=== PATIENT | male | born 1980 | race Caucasian/White ===

== ENCOUNTER 2017-05-08 14:58 | Observation (INO) | payer OTHER ==
--- NOTE | 2017-05-08 15:55 | XRAY ---
Indication: Right abdominal pain for 2 weeks. Multiple contiguous axial images obtained through the abdomen and pelvis prior to and following 80 cc Isovue 370 contrast only. Comparison: None Lung bases demonstrates minimal bibasilar dependent and subsegmental atelectasis. Tiny 3 mm noncalcified nodule in the peripheral right lower lobe possibly granulomatous. No infiltrate or effusion. Heart is not enlarged. Noncontrasted images through the abdomen demonstrates a few calcified splenic granulomas. No renal calculus or evidence for obstructive uropathy. Noncontrasted stomach and bowel loops appear nonobstructed. Mild scattered colonic diverticulosis. Appendix is abnormally prominent up to 2 cm with periappendiceal stranding and 5 mm appendicolith favoring acute appendicitis. Tiny free fluid but no walled off fluid collection or free air. Postcontrast images demonstrate normal visceral enhancement and renal excretion. Spleen is enlarged measuring 14.5 cm in greatest axial dimension. Remaining liver, gallbladder, pancreas, spleen, adrenal glands, kidneys, ureters, bladder, and aorta appear unremarkable. No pathologic retroperitoneal lymphadenopathy. Osseous structures intact. Tiny fatty umbilical hernia. Impression: 1. CT findings as detailed favoring acute appendicitis. No perforation or abscess. 2. Incidental scattered colonic diverticulosis, splenomegaly, and tiny fatty umbilical hernia. 3. Right lower lobe 3 mm noncalcified micronodule possibly granulomatous especially in this demographic. Comment: Immediate telephone report was given to the ordering clinician. CT DI 28.11
[2017-05-08] MEDS ORDERED: Zofran 4 MG/2 ML VIAL IV PRN (16:22)
[2017-05-08] MEDS ORDERED: Dextrose 5% -0.45 NaCl 1000 ML 1,000 ML IV SCH (16:30)
[2017-05-08] MEDS ORDERED: MEFOXIN 2 GM PREMIX** 2 GM/50 ML ML IV SCH (17:00)
[2017-05-08] MEDS ORDERED: Pepcid 20 MG VIAL IV SCH (17:00)
[2017-05-08] MEDS ORDERED: BICITRA 30 ML CUP PO SCH (17:00)
[2017-05-08] MEDS ORDERED: Lactated Ringers 1,000 ML IV SCH (17:00)
[2017-05-08 17:11] LABS: BASOPHIL % 0.3 % (0.0-0.4); Eosinophil % 0.5 % (0.00-5.0); Granulocytes % 65.7 % (36.0-66.0); Lymphocytes % 24.8 % (24.0-44.0); Mean Cell Volume 89.5 fl (78-100); Mean Corpuscular Hemoglobin 30.3 pg (26-32); Mean Platelet Volume 10.2 fl (6-9.5); Monocytes % 8.7 % (0.0-12.0); Platelet Count 245 K/mm3 (150-450); Red Blood Count 4.78 M/mm3 (4.1-5.6); Red Cell Distribution Width 13.6 % (11.5-14.0); White Blood Count 7.6 K/mm3 (4.0-10.5)
[2017-05-08 17:40] LABS: ALKALINE PHOSPHATASE 75 U/L (46-116); ANION GAP 11.9 MEQ/L (5-15); BLOOD UREA NITROGEN 8 mg/dL (9-20); CHLORIDE 103 mEq/L (98-107); Carbon Dioxide 29.8 mEq/L (21-32); Glucose 86 MG/DL (70-110); LIPASE 97 U/L (73-393); Potassium 3.7 mEq/L (3.5-5.1); SGOT/AST 11 U/L (15-37); SGPT/ALT 46 U/L (12-78); SODIUM 141 mEq/L (136-145); Total Protein 8.1 gm/dL (6.4-8.2)
[2017-05-08] MEDS ORDERED: Lactated Ringers 1,000 ML IV ONE (19:44)
[2017-05-08] MEDS ORDERED: Sensorcaine 0.25% 10 ML ONE (19:44)
[2017-05-08] MEDS ORDERED: DEMEROL 50 MG ONE (21:40)
[2017-05-08] MEDS ORDERED: MORPHINE SULFATE 4 MG INJ ONE (22:27)
[2017-05-08] MEDS: MORPHINE SULFATE 4 MG INJ IV PRN (22:30)
[2017-05-08] MEDS ORDERED: D5W/0.45NS W/ 20mEq KCl 1000 ML 1,000 ML IV SCH (23:00)
[2017-05-08] MEDS: MEFOXIN 1 Gm/ D5W 50 Ml** 1 G/50 ML ML IV SCH (23:25)
[2017-05-09] MEDS: MORPHINE SULFATE 4 MG INJ IV PRN (01:35)
[2017-05-09] MEDS: MEFOXIN 1 Gm/ D5W 50 Ml** 1 G/50 ML ML IV SCH ×2 (05:18→12:14)
[2017-05-09 05:31] LABS: Mean Cell Volume 89.6 fl (78-100); Mean Corpuscular Hemoglobin 30.5 pg (26-32); Mean Platelet Volume 10.1 fl (6-9.5); Platelet Count 230 K/mm3 (150-450); Red Blood Count 4.53 M/mm3 (4.1-5.6); Red Cell Distribution Width 13.3 % (11.5-14.0); White Blood Count 6.3 K/mm3 (4.0-10.5)
[2017-05-09] MEDS ORDERED: MORPHINE SULFATE 4 MG INJ IV PRN (06:57)
[2017-05-09] MEDS ORDERED: MORPHINE SULFATE 2 MG INJ IV PRN (06:57)
[2017-05-09] MEDS ORDERED: TYLENOL 325 MG PO PRN (06:59)
[2017-05-09] MEDS ORDERED: NORCO 5/325 MG PO PRN (07:00)
[2017-05-09] MEDS ORDERED: LANSOPRAZOLE PO PRN (07:05)
[2017-05-09 08:02] VITALS: O2SAT 94
--- NOTE | 2017-05-09 08:41 | HP ---
CHIEF COMPLAINT: Right flank pain. HISTORY OF PRESENT ILLNESS: The patient reports a four day history of right flank pain becoming worse over the ensuing two days. The patient reports now that his pain is more periumbilical. He was seen in the office and on evaluation found to be quite tender. He was sent over to the hospital for evaluation with blood work including CBC, CMP and CT scan. The CT scan did report back positive for signs of early appendicitis. PAST MEDICAL/SURGICAL HISTORY: Essentially unremarkable. He is a healthy fellow with no medical problems. MEDICATIONS: He takes no medications. ALLERGIES: NKDA. PHYSICAL EXAMINATION: Revealed a well nourished, well developed 37 year-old white male patient who is in mild to moderate distress due to his abdominal pain. VITAL SIGNS: Showed a height of 6'1", weight 268 lbs., temperature 97.9F, pulse 83, respiratory rate 18, blood pressure 139/95. O2 saturation 95% on room air. HEENT: Normocephalic, atraumatic. Pupils equal round reactive to light. Extraocular movements intact. Oropharynx is pink and moist. NECK: Supple without lymphadenopathy, thyromegaly or JVD. CHEST: Clear to auscultation with good air movement bilaterally. HEART: Regular rate and rhythm without murmurs, rubs or gallops. ABDOMEN: Tender especially in the right flank and right lower quadrant area. There was no guarding or rebound present. There were no palpable masses. EXTREMITIES: Without clubbing, cyanosis or edema. NEUROLOGIC: The patient is alert and oriented x3. No focal deficits were noted. ASSESSMENT: A patient with appendicitis. He has been admitted to the hospital for surgical consultation and possible laparoscopic appendectomy. His laboratory data is otherwise currently pending at this time.
[2017-05-09] MEDS ORDERED: Protonix 40MG Tablet PO SCH (10:00)
[2017-05-09] MEDS ORDERED: ENOXAPARIN SODIUM SQ SCH (10:00)
[2017-05-09 11:42] VITALS: BP 97/51; PULSE 75
[2017-05-09] MEDS ORDERED: Versed 2 MG/2 ML Injection IV ONE (13:29)
[2017-05-09] MEDS ORDERED: Quelicin Fliptop 200 MG/10 ML IJ ONE (13:29)
[2017-05-09] MEDS ORDERED: DIPRIVAN 200 MG/20 ML IV ONE (13:29)
[2017-05-09] MEDS ORDERED: BRIDION 200MG/2ML IV ONE (13:29)
[2017-05-09] MEDS ORDERED: SUBLIMAZE 250 MCG/5 ML IJ ONE (13:29)
[2017-05-09] MEDS ORDERED: Zofran 4 MG/2 ML VIAL IV ONE (13:29)
[2017-05-09] MEDS ORDERED: Zemuron 100 MG/10 ML IJ ONE (13:29)
[2017-05-09] MEDS ORDERED: Decadron 4 MG INJ IV ONE (13:29)
[2017-05-09] MEDS ORDERED: DILAUDID 2 MG INJECTION IV ONE (13:29)
--- NOTE | 2017-05-11 07:38 | OP ---
SURGERY DATE/TIME: 05/08/20172039 PREOPERATIVE DIAGNOSIS: Acute appendicitis. POSTOPERATIVE DIAGNOSIS: Acute appendicitis. PROCEDURE: Laparoscopic appendectomy. SURGEON: Usman Bonilla M.D. ANESTHESIA: General endotracheal tube. COMPLICATIONS: None. CONDITION: Stable. INDICATION: The patient had product representative symptoms. Physical examination and CT positive. DESCRIPTION OF PROCEDURE: He was taken to surgery. General anesthetic. Routine prep and drape. Veress needle inserted. Opening pressure of 1, insufflating pressure 14. Two - 5's and then a 12. Good visualization. It was retrocecal down towards the pelvis. It was several days old. It was curled up markedly. The base was taken. The mesoappendix was taken. Appendix placed in a condom bag and removed. The field was irrigated. A 10 EDIL was placed. The stump was good and the mesentery was dry. CO2 was exsufflated. Port site closed with 0 Vicryl with hole closure device. Skin closed with 4-0 Vicryl and Steri-Strips. The patient tolerated the procedure satisfactorily.
== END 2017-05-09 13:30 | disposition home or self-care (01) ==
LOC: LAB 14:58 → MED SURG 16:00 → EDSTATUS 16:07
PROVIDERS: ADMIT Family Medicine; ATTEND Family Medicine
PROC: 0DTJ4ZZ Resection of Appendix, Percutaneous Endoscopic Approach (ICD-10-PCS; principal; 2017-05-08)
DX: K35.80 Unspecified acute appendicitis (principal)
CPT/HCPCS: 00840; 36415; 74178; 80053; 82150; 83690; 85025; 85027; 88304; 94762; 99140; G0378; J0330; J0694; J1100; J1170; J1650; J2175; J2250; J2270; J2405; J2704; J3010; A9270-GY

== ENCOUNTER 2024-04-13 17:42 | Emergency (ER) | payer OTHER ==
[2024-04-13 17:49] VITALS: TEMP 97.8
[2024-04-13 18:12] LABS: Absolute Neutrophil Ct (ANC) 9.43 x10^3/uL (1.78-5.38); BASOPHIL % 0.4 % (0.2-1.2); Basophil (Absolute #) 0.04 x10^3/uL (0.01-0.08); Eosinophil % 0.3 % (0.8-7.0); Eosinophil (Absolute #) 0.03 x10^3/uL (0.04-0.54); Hematocrit 43.4 % (40.1-51.0); Hemoglobin 14.6 g/dL (13.7-17.5); IMMATURE GRAN # 0.06 x10^3u/L (0.001-0.031); IMMATURE GRAN % 0.5 % (0.001-0.429); Lymphocyte (Absolute #) 0.83 x10^3/uL (1.32-3.57); Lymphocytes % 7.4 % (21.8-53.1); Mean Cell Volume 88.6 fL (79.0-92.2); Mean Corpuscular Hemoglobin 29.8 pg (25.7-32.2); Mean Corpuscular Hgb Concent. 33.6 g/dL (32.3-36.5); Mean Platelet Volume 9.5 fL (9.4-12.4); Monocyte (Absolute #) 0.89 x10^3/uL (0.30-0.82); Monocytes % 7.9 % (5.3-12.2); Neutrophil % 83.5 % (34.0-67.9); Platelet Count 291 x10^3/uL (163-337); White Blood Count 11.3 x10^3/uL (4.23-9.07)
[2024-04-13 18:26] LABS: ALBUMIN 4.5 g/dL (3.5-5.0); ANION GAP 16.9 MEQ/L (5-15); BILIRUBIN,TOTAL 0.8 mg/dL (0.2-1.3); Calcium 9.2 mg/dL (8.4-10.2); Creatinine 1 1.34 mg/dL (0.66-1.25); EST GLOMERULAR FILTRATION RATE 68.3 ML/MIN; Potassium 3.7 mmol/L (3.5-5.1); Total Protein 8.3 g/dL (6.3-8.2)
[2024-04-13] MEDS ORDERED: Sodium Chloride 0.9% 1000 ML 1,000 ML ONE (18:38)
[2024-04-13] MEDS: Sodium Chloride 0.9% 1000 ML 1,000 ML IV STA (18:39)
[2024-04-13 18:47] VITALS: PULSE 81; RESP 16
--- NOTE | 2024-04-13 18:58 | ERPHSYRPT ---
- History of Present Illness Time Seen by Provider: 04/13/24 17:46 Historian: patient Exam Limitations: no limitations Patient Subjective Stated Complaint: pt here for abd pain and nause since monday, he was seen at the clinic and dx with diverticuli and is on 2 antibotics now, Triage Nursing Assessment: pt alert, walked in, resp easy, skin w/d/p, bs heard x 4 abd soft Physician History: 43-year-old male with diverticulitis diagnosed 5 days ago currently on Cipro and Flagyl presented in the ER for reevaluation as patient had a moderate to severe pain in the periumbilical/lower abdomen area early this morning. Patient described this as a gas pain. He called pharmacist although his pain was resolved to make sure it is not secondary to antibiotics. Patient currently denies having severe pain but minimal discomfort which he has at before. No associated nausea or vomiting but does have some cramping which gets worse after oral intake. Denies any bleeding per rectal. No fever or chills reported. Patient reports he got very anxious after talking with pharmacist although his symptoms are resolved. Allergies/Adverse Reactions: No Known Drug Allergies Allergy (Verified 04/13/24 17:49) Home Medications: Lansoprazole [Prevacid 24Hr] 1 tab PO DAILY PRN PRN 04/20/15 [History] Hx Influenza Vaccination/Date Given: No Hx Pneumococcal Vaccination/Date Given: No Immunizations Up to Date: Yes Travel Risk - International Travel Have you traveled outside of the country in past 3 weeks: No - Emerging Infectious Disease Are you exhibiting symptoms associated with any current EIDs: Yes Symptoms: Abdominal Pain, Diarrhea - Review of Systems Constitutional: No Symptoms Eyes: No Symptoms Ears, Nose, & Throat: No Symptoms Respiratory: No Symptoms Cardiac: No Symptoms Abdominal/Gastrointestinal: Abdominal Pain, Nausea, Diarrhea Genitourinary Symptoms: No Symptoms Musculoskeletal: No Symptoms Skin: No Symptoms Neurological: No Symptoms Endocrine: No Symptoms Hematologic/Lymphatic: No Symptoms - Past Medical History Pertinent Past Medical History: Yes Neurological History: No Pertinent History ENT History: No Pertinent History Cardiac History: High Cholesterol Respiratory History: No Pertinent History Endocrine Medical History: No Pertinent History Musculoskeletal History: No Pertinent History GI Medical History: Diverticulosis History: No Pertinent History Psycho-Social History: No Pertinent History Male Reproductive Disorders: No Pertinent History - Past Surgical History Past Surgical History: Yes Neuro Surgical History: No Pertinent History Cardiac: No Pertinent History Respiratory: No Pertinent History Gastrointestinal: Appendectomy Genitourinary: No Pertinent History Musculoskeletal: No Pertinent History Male Surgical History: No Pertinent History Other Surgical History: colonoscopy - Social History Smoking Status: Never smoker Exposure to second hand smoke: No Drug Use: none - Social Determinants of Health Will the patient participate in the screening: Declined to provide - Nursing Vital Signs Nursing Vital Signs: Initial Vital Signs Temperature 97.8 F 04/13/24 17:48 Pulse Rate 102 H 04/13/24 17:48 Respiratory Rate 18 04/13/24 17:48 Blood Pressure 138/83 04/13/24 17:48 O2 Sat by Pulse Oximetry 98 04/13/24 17:48 Pain Scale Pain Intensity 4 - Physical Exam General Appearance: no apparent distress, alert Eye Exam: PERRL/EOMI Ears, Nose, Throat Exam: normal ENT inspection Neck Exam: normal inspection, non-tender, supple, full range of motion Respiratory Exam: normal breath sounds, lungs clear Cardiovascular Exam: regular rate/rhythm, normal heart sounds Gastrointestinal/Abdomen Exam: soft, normal bowel sounds, tenderness (Left lower quadrant) Back Exam: normal inspection, normal range of motion Extremity Exam: normal inspection, normal range of motion Neurologic Exam: alert, oriented x 3, cooperative Skin Exam: normal color SpO2 Interpretation: normal SpO2: 97 O2 Delivery: Room Air Ordered Tests: Active Orders 24 hr Category Date Time Status CBC W DIFF Stat Lab 04/13/24 18:09 Completed CMP Stat Lab 04/13/24 18:09 Completed LIPASE Stat Lab 04/13/24 18:09 Completed Lactic Acid Stat Lab 04/13/24 18:30 Completed UA W/RFX UR CULTURE Stat Lab 04/13/24 19:17 Completed Medication Summary Discontinued Medications Generic Name Dose Route Start Last Admin Trade Name Freq PRN Reason Stop Dose Admin Sodium Chloride 1,000 mls @ 999 mls/hr 04/13/24 18:37 04/13/24 18:39 Sodium Chloride 0.9% 1000 Ml IV 04/13/24 19:37 999 mls/hr .Q1H1M STA Administration Sodium Chloride Confirm 04/13/24 18:38 Sodium Chloride 0.9% 1000 Ml Administered 04/13/24 18:39 Dose 1,000 mls @ ud .ROUTE .[facility] Lab/Rad Data: Laboratory Result Diagrams 04/13/24 18:09 04/13/24 18:09 Laboratory Results 04/13/24 04/13/24 04/13/24 Range/Units 19:17 18:30 18:09 WBC (4.23-9.07) x10^3/uL RBC (4.63-6.08) x10^6/uL Hgb (13.7-17.5) g/dL Hct (40.1-51.0) % MCV (79.0-92.2) fL MCH (25.7-32.2) pg MCHC (32.3-36.5) g/dL RDW (11.6-14.4) % Plt Count (163-337) x10^3/uL MPV (9.4-12.4) fL Gran % (34.0-67.9) % Immature Gran % (Auto) (0.001-0.429) % Nucleat RBC Rel Count (0.00-0.2) % Eos # (Auto) (0.04-0.54) x10^3/uL Immature Gran # (Auto) (0.001-0.031) x10^3u/L Absolute Lymphs (auto) (1.32-3.57) x10^3/uL Absolute Monos (auto) (0.30-0.82) x10^3/uL Absolute Nucleated RBC (0.00-0.012) x10^3u/L Lymphocytes % (21.8-53.1) % Monocytes % (5.3-12.2) % Eosinophils % (0.8-7.0) % Basophils % (0.2-1.2) % Absolute Granulocytes (1.78-5.38) x10^3/uL Basophils # (0.01-0.08) x10^3/uL Sodium 139 (135-145) mmol/L Potassium 3.7 (3.5-5.1) mmol/L Chloride 101 (98-107) mmol/L Carbon Dioxide 25 (22-30) mmol/L Anion Gap 16.9 H (5-15) MEQ/L BUN 14 (9-20) mg/dL Creatinine 1.34 H (0.66-1.25) mg/dL Estimated GFR 68.3 ML/MIN Glucose 132 H (74-106) mg/dL Lactic Acid 1.3 (0.4-2.0) Calcium 9.2 (8.4-10.2) mg/dL Total Bilirubin 0.80 (0.2-1.3) mg/dL AST 27 (17-59) U/L ALT 28 (0-50) U/L Alkaline Phosphatase 70 (38-126) U/L Serum Total Protein 8.3 H (6.3-8.2) g/dL Albumin 4.5 (3.5-5.0) g/dL Lipase 69 (23-300) U/L Urine Color Yellow (Yellow) Urine Appearance Clear (Clear) Urine pH 5.5 (4.6-8.0) Ur Specific [place] 1.015 (1.005-1.030) Urine Protein Negative (Negative) Urine Glucose (UA) Negative (Negative) mg/dL Urine Ketones Trace A (Negative) Urine Blood Negative (Negative) Urine Nitrite Negative (Negative) Urine Bilirubin Negative (Negative) Urine Urobilinogen 0.2 (0.2) mg/dL Ur Leukocyte Esterase Small A (Negative) U Hyaline Cast (Auto) NONE SEEN (0-2) /LPF Urine Microscopic RBC 0-2 (0-5) /HPF Urine Microscopic WBC 0-2 (0-5) /HPF Ur Epithelial Cells None Seen (None Seen) /HPF Urine Bacteria None Seen (None Seen) /HPF Urine Culture Reflexed NO (NO) 04/13/24 Range/Units 18:09 WBC 11.3 H (4.23-9.07) x10^3/uL RBC 4.90 (4.63-6.08) x10^6/uL Hgb 14.6 (13.7-17.5) g/dL Hct 43.4 (40.1-51.0) % MCV 88.6 (79.0-92.2) fL MCH 29.8 (25.7-32.2) pg MCHC 33.6 (32.3-36.5) g/dL RDW 13.0 (11.6-14.4) % Plt Count 291 (163-337) x10^3/uL MPV 9.5 (9.4-12.4) fL Gran % 83.5 H (34.0-67.9) % Immature Gran % (Auto) 0.5 H (0.001-0.429) % Nucleat RBC Rel Count 0.0 (0.00-0.2) % Eos # (Auto) 0.03 L (0.04-0.54) x10^3/uL Immature Gran # (Auto) 0.06 H (0.001-0.031) x10^3u/L Absolute Lymphs (auto) 0.83 L (1.32-3.57) x10^3/uL Absolute Monos (auto) 0.89 H (0.30-0.82) x10^3/uL Absolute Nucleated RBC 0.00 (0.00-0.012) x10^3u/L Lymphocytes % 7.4 L (21.8-53.1) % Monocytes % 7.9 (5.3-12.2) % Eosinophils % 0.3 L (0.8-7.0) % Basophils % 0.4 (0.2-1.2) % Absolute Granulocytes 9.43 H (1.78-5.38) x10^3/uL Basophils # 0.04 (0.01-0.08) x10^3/uL Sodium (135-145) mmol/L Potassium (3.5-5.1) mmol/L Chloride (98-107) mmol/L Carbon Dioxide (22-30) mmol/L Anion Gap (5-15) MEQ/L BUN (9-20) mg/dL Creatinine (0.66-1.25) mg/dL Estimated GFR ML/MIN Glucose (74-106) mg/dL Lactic Acid (0.4-2.0) Calcium (8.4-10.2) mg/dL Total Bilirubin (0.2-1.3) mg/dL AST (17-59) U/L ALT (0-50) U/L Alkaline Phosphatase (38-126) U/L Serum Total Protein (6.3-8.2) g/dL Albumin (3.5-5.0) g/dL Lipase (23-300) U/L Urine Color (Yellow) Urine Appearance (Clear) Urine pH (4.6-8.0) Ur Specific [place] (1.005-1.030) Urine Protein (Negative) Urine Glucose (UA) (Negative) mg/dL Urine Ketones (Negative) Urine Blood (Negative) Urine Nitrite (Negative) Urine Bilirubin (Negative) Urine Urobilinogen (0.2) mg/dL Ur Leukocyte Esterase (Negative) U Hyaline Cast (Auto) (0-2) /LPF Urine Microscopic RBC (0-5) /HPF Urine Microscopic WBC (0-5) /HPF Ur Epithelial Cells (None Seen) /HPF Urine Bacteria (None Seen) /HPF Urine Culture Reflexed (NO) - Progress Progress: improved, re-examined Progress Note: 04/13/24 20:03 43-year-old with CT proven noncomplicated sigmoid diverticulitis almost 5 days ago on antibiotics is evaluated for pain earlier this morning. Although pain is resolved but patient was very anxious. Minimal tenderness to deep palpation of the left lower quadrant. No guarding. Normoactive bowel sounds in all 4 quadrants. Patient is offered pain medication which she declined. Is given fluid bolus. Workup showed white count of 11 which is improved from 12 and also mild improvement in renal function from 1.4-1.3 creatinine. No definite UTI. I have offered him CT imaging but he declined. I think it is reasonable. Patient is feeling better on reevaluation and his symptoms are well-controlled. Recommended continue with antibiotics and take Tylenol ibuprofen as needed and outpatient follow-up. Discussed signs symptoms of worsening needing return to ER which she seems understanding. Stable for discharge. Counseled pt/family regarding: lab results, diagnosis, need for follow-up Medical Desision Making - Diagnostic Testing Diagnostic test were ordered, analyzed, and reviewed by me: Yes - Risk of complications The pt has a mod risk of morbidity or mortality based on: Need for prescription drug management - Departure Departure Disposition: Home Clinical Impression: Acute diverticulitis of intestine Condition: Stable Critical Care Time: No Referrals: MARYCRUZ LANE MD [Primary Care Provider] - Follow up with PCP 1 day Instructions: Severe Abdominal Pain, Adult (DC), Diverticulitis - Discharge instructions Additional Instructions: Take Tylenol/ibuprofen as needed. Follow-up with primary care for reevaluation. Return to ER for intractable pain, vomiting, worsening diarrhea or if having blood in the stool/fever chills etc.
[2024-04-13 19:33] LABS: ADD URINE CULTURE? NO (NO); Appearance Clear (Clear); Bacteria None Seen /HPF (None Seen); Bilirubin Negative (Negative); Blood Negative (Negative); Epithelial Cells None Seen /HPF (None Seen); Glucose, Urine Negative (Negative); Hyaline Casts NONE SEEN /LPF (0-2); Ketones Trace (Negative); Leukocyte Esterase Small (Negative); Nitrite Negative (Negative); Ph 5.5 (4.6-8.0); Protein,Urine Dip Negative (Negative); RBC 0-2 /HPF (0-5); Specific Gravity 1.015 (1.005-1.030); Urobilinogen 0.2 mg/dL (0.2); WBC 0-2 /HPF (0-5)
[2024-04-13 19:50] VITALS: BP 105/68
[2024-04-13 20:06] VITALS: O2SAT 97
== END 2024-04-13 20:26 | disposition home or self-care (01) ==
LOC: ED 17:42
DX: K57.32 Diverticulitis of large intestine without perforation or abscess without bleeding (principal); R10.33 Periumbilical pain; E78.5 Hyperlipidemia, unspecified; Z79.899 Other long term (current) drug therapy
CPT/HCPCS: 36000; 36415; 80053; 81001; 83605; 83690; 85025; 96360; 99283